=== PATIENT | female | born 1985 | race African-American/Black ===

== ENCOUNTER 2018-02-08 11:34 | Emergency (ER) | payer SELFPAY ==
[~2018-02-08] VITALS: Ht 157.5 cm; Wt 75.7 kg
[2018-02-08] MEDS ORDERED: LORAZEPAM INJ 2 MG/ML VIAL ONE (12:01)
--- NOTE | 2018-02-08 12:12 | NUR ---
Pt w/multiple complaints and states " Im having a lot of stress. Started about 1mo ago worse last night- mostly worried about REYNOSO and chest pain" Updated with plan of care
[2018-02-08 12:15] LABS: APPEARANCE,URINE Cloudy (CLEAR); BILIRUBIN,URINE Negative (NEGATIVE); BLOOD, URINE Trace-intact Ery/uL (NEGATIVE); COLOR,URINE Yellow (YELLOW); KETONES,URINE Negative (NEGATIVE); LEUKOCYTE ESTERASE ,URINE Negative (NEGATIVE); NITRITE, URINE Negative (NEGATIVE); PROTEIN,URINE Trace mg/dl (NEGATIVE); UGLUCOSE Negative (NEGATIVE); UROBILINOGEN,URINE 0.2 EU/dL (0.2)
[2018-02-08] MEDS: LORAZEPAM INJ 2 MG/ML VIAL IM ONE (12:34)
[2018-02-08 12:46] LABS: BACTERIA,URINE Few /HPF (None Seen); SQUAMOUS EPITHELIAL CELL,UR Few /HPF (None Seen); URINE AMORPHOUS PHOSPHATES Moderate /HPF (None Seen); WBC,URINE NONE SEEN /HPF (0-3)
[2018-02-08 13:24] VITALS: BP 129/86
--- NOTE | 2018-02-08 13:25 | NUR ---
Patient discharged to home in stable condition. Written and verbal after care instructions given. Patient verbalizes understanding of instruction.
== END 2018-02-08 13:26 | disposition home or self-care (01) ==
LOC: ER 11:36
DX: F41.9 Anxiety disorder, unspecified (principal); Z98.84 Bariatric surgery status; Z98.890 Other specified postprocedural states
CPT/HCPCS: 71045-TC; 81000-TC; 84703-TC; A4606; J2060; Z7610